=== PATIENT | male | born 2000 | race Caucasian/White ===

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

== ENCOUNTER 2024-05-10 12:21 | Emergency (ER) | payer OTHER, SELFPAY ==
[2024-05-10 12:34] VITALS: BP 116/67; PULSE 65; RESP 16; TEMP 36.5; O2SAT 100
--- NOTE | 2024-05-10 12:43 | ED.MALEGU ---
HPI - Male Genitourinary General Chief complaint: Urogenital-Male Stated complaint: std test Time Seen by Provider: 05/10/24 12:24 Source: patient Mode of arrival: ambulatory Limitations: no limitations History of Present Illness HPI Narrative: Nkio is a 21-year-old male patient presenting to the clinic today with complaints chlamydia exposure. He reports his ex-girlfriend was seen by her rare/endangered species specialist on Thursday last week in tested positive for chlamydia. She notified him and prompted him to come in to the clinic today for evaluation. He denies any penile discharge, back pain, abdominal pain, fevers, chills, nausea, vomiting, or testicle pain. Related Data Allergies Allergy/AdvReac Type Severity Reaction Status Date / Time No Known Allergies Allergy Verified 05/10/24 12:24 Review of Systems Review of Systems: Pertinent positives per HPI. Patient denies any fever, chills, rash, headache, visual changes, dizziness, cough, runny nose, sore throat, shortness of breath, chest pain, palpitations, nausea, vomiting, diarrhea, constipation, abdominal pain, or any urinary issues. PMFSH Past Medical History Medical History Collar bone fracture X2 Seizure none in years Surgical History Surgical History (Updated 03/17/20 @ 12:14 by LLUVIA Valdez) No significant past surgical history Family History Family History Father Rheumatoid arthritis Mother Alive and well Social History Social History Smoking status: Never smoker Tobacco type: cigarettes Second hand tobacco smoke exposure: No Alcohol intake: never Substance use: never Living arrangements: with family Occupation/Education: occupation Gender identity (if verbalized by the patient): Male Comments At the time of my signature, I reviewed and agree with the nursing past medical, surgical, social, and family history. There is no relevant family history pertinent to the patient complaint. Exam Narrative: General: Well-developed, well nourished, in no apparent distress. Head: Normocephalic, atraumatic. Cardio: Regular rate and rhythm, s1 and s2 normal, no murmur appreciated. Resp: Clear to auscultation bilaterally, no rhonchi, rales, wheezing or rubs. Abdomen: Soft, pliable, bowel sounds present in all quadrants, non-tender to palpation, no organomegly, no CVAT tenderness. : Deferred Course Course Emergency Course: Portions of this record may have been created with voice recognition software. Level of Care: Express Care Visit Vital Signs Vital signs: Vital Signs Temperature 36.5 C 05/10/24 12:34 Pulse Rate 65 05/10/24 12:34 Respiratory Rate 16 05/10/24 12:34 Blood Pressure 116/67 05/10/24 12:34 Pulse Oximetry 100 05/10/24 12:34 Oxygen Delivery Room Air 05/10/24 12:34 Temperature 36.5 C 05/10/24 12:34 Pulse Rate 65 05/10/24 12:34 Respiratory Rate 16 05/10/24 12:34 Blood Pressure 116/67 05/10/24 12:34 Pulse Oximetry 100 05/10/24 12:34 Oxygen Delivery Room Air 05/10/24 12:34 Vital signs reviewed MDM - Male Genitourinary MDM Narrative Medical decision making narrative: At the time of visit patient is resting comfortably on the exam table. Patient appears to be nontoxic. Labs: Urine obtained for testing for chlamydia, gonorrhea and Trichomonas. Plan: Patient had positive exposure to chlamydia. Will place patient on doxycycline and also give him Rocephin injection in the clinic today to cover gonorrhea. Supportive measures were discussed with the patient and they voiced understanding discharge instructions and agrees to treatment plan. Return precautions reviewed Differential Diagnosis Differential diagnosis: Likely urinary tract infection, urethritis, epididymitis, genital herpes simplex and other Discharge Plan Discharge Clinical Impression: Exposure to chlamydia Patient Disposition: Home, Self-Care Condition: Stable Instructions: Antibiotic Form, Chlamydia (ED), Sexually Transmitted Diseases (ED), Safe Sex Practices (ED) Additional Instructions: Take doxycycline as prescribed We have tested/treated you for STIs in the clinic today. Avoid any sexual activity- includes oral, anal, or vaginal intercourse until you get results back and have completed any additional recommended treatment regimens. We will contact you if testing is positive and make sure your treatment was appropriate for the type of STI. If symptoms worsen after treatment recommend reevaluation with your PCP or Express care. Prescriptions: New doxycycline monohydrate 100 mg capsule 100 mg PO BID 7 Days Qty: 14 0RF Follow-up/Referrals: Samira Velasquez APRN [Primary Care Provider] - Time of Disposition: 12:46 Quality NIHSS Nursing Documentation ED NIHSS nursing documentation: reviewed/agree
[2024-05-10] MEDS: cefTRIAXone 500 MG, LIDOCAINE HCL 1% LOCAL INJ 1 ML IM (12:49)
[2024-05-10 21:31] LABS: Trichomonas Vag PCR NOT DETECTED (NOT DETECTE)
[2024-05-10 21:57] LABS: Chlamydia trachomatis DETECTED (NOT DETECTE); Neisseria gonorrhoeae PCR NOT DETECTED (NOT DETECTE)
== END 2024-05-10 13:00 | disposition home or self-care (01) ==
PROVIDERS: Emergency Provider Nurse Practitioner Family; PCP Nurse Practitioner Family
DX: Z20.2 Contact with and (suspected) exposure to infections with a predominantly sexual mode of transmission (principal); Z11.3 Encounter for screening for infections with a predominantly sexual mode of transmission
CPT/HCPCS: 87491; 87591; 87661; 96372; 99213; G0463; J0696; J2003

== ENCOUNTER 2024-06-14 14:52 | Emergency (ER) | payer OTHER, SELFPAY ==
[2024-06-14 15:23] VITALS: BP 107/80; PULSE 60; RESP 18; TEMP 36.5; O2SAT 99
--- NOTE | 2024-06-14 15:35 | ED_ITS ---
HPI - URI/Sore Throat General Chief Complaint: Upper Respiratory Infection Stated Complaint: head pressure/cough/congestion Time Seen by Provider: 06/14/24 15:35 Source: patient Mode of arrival: ambulatory Limitations: no limitations History of Present Illness HPI Narrative: 23-year-old male presents with complaint of sinus congestion, pressure to bilateral ears with muffled hearing, worsening of pressure with position changes. Taking an [id number] DayQuil cold and Sinus with no relief so if symptoms. Afebrile. Concern for bacterial sinusitis. All systems reviewed and negative except as noted above. Related Data Allergies Allergy/AdvReac Type Severity Reaction Status Date / Time No Known Allergies Allergy Verified 06/14/24 15:22 Review of Systems Review of Systems: CONSTITUTIONAL: Denies fever, chills, or sweats. EYES: Denies visual changes, redness, or discharge. ENT: Reports rhinorrhea, congestion, sinus pressure, bilateral ear pressure. Denies sore throat CARDIOVASCULAR: Denies chest pain, palpitations, or edema. RESPIRATORY: Denies cough or dyspnea. GASTROINTESTINAL: Denies abdominal pain, nausea, vomiting, or diarrhea. GENITOURINARY: Denies dysuria or hematuria. SKIN: Denies rash or itching. MUSCULOSKELETAL: Denies back pain, joint pain, or myalgia. NEUROLOGIC: Denies headache, numbness, or weakness. PSYCHIATRIC: Denies anxiety or depression. All other systems reviewed are negative, except as documented in HPI. [facility] Past Medical History Medical History Collar bone fracture X2 Seizure none in years Surgical History Surgical History (Updated 03/17/20 @ 12:14 by LLUVIA Valdez) No significant past surgical history Family History Family History Father Rheumatoid arthritis Mother Alive and well Social History Social History Smoking status: Never smoker Tobacco type: cigarettes Second hand tobacco smoke exposure: No Alcohol intake: never Substance use: never Living arrangements: with family Occupation/Education: occupation Gender identity (if verbalized by the patient): Male Comments At time of signature, agree with nursing past medical, surgical, social and family history. There is no relevant family history pertinent to the presenting complaint. Exam Narrative: GENERAL: This is a well-nourished, well-developed patient, in no apparent distress. HEAD: normocephalic, atraumatic. EYES: PERRL. Sclera clear/white. Vision is grossly intact. EARS: External ears normal, auditory canals clear and without drainage, fluid bilateral TMs with mild erythema without perforation bilaterally. Hearing grossly intact. NOSE: External nose normal with Mild congestion, purulent nasal drainage THROAT: Mucous membranes moist, erythema with clear postnasal drainage. Frontal sinus tenderness on palpation NECK: Neck supple, non-tender without lymphadenopathy, masses or thyromegaly. CARDIOVASCULAR: Regular rate and rhythm without murmurs, gallops, or rubs. RESPIRATORY: Clear to auscultation. Breath sounds equal bilaterally. No wheezes, rales, or rhonchi. SKIN: warm, Dry, intact with no suspicious lesions or rash, good texture and turgor. NEURO: awake, alert, and oriented to person, place and time. There were no obvious focal neurologic abnormalities. EXTREMITIES: No joint tenderness, effusion, or edema noted. Course Course Level of Care: Express Care Visit Vital Signs Vital signs: Vital Signs Temperature 36.5 C 06/14/24 15:23 Pulse Rate 60 06/14/24 15:23 Respiratory Rate 18 06/14/24 15:23 Blood Pressure 107/80 06/14/24 15:23 Pulse Oximetry 99 06/14/24 15:23 Temperature 36.5 C 06/14/24 15:23 Pulse Rate 60 06/14/24 15:23 Respiratory Rate 18 06/14/24 15:23 Blood Pressure 107/80 06/14/24 15:23 Pulse Oximetry 99 06/14/24 15:23 reviewed MDM - URI/Sore Throat MDM Narrative Medical decision making narrative: will treat patient for bacterial sinusitis due to duration of symptoms and exam findings. Patient is aware of diagnosis, understands and agrees to treatment plan. Anticipatory guidance given. Patient agrees to follow-up as directed and is aware of reasons to seek care at the emergency department. Portions of this record may have been created with voice recognition software Differential Diagnosis Differential diagnosis: Likely upper respiratory infection, sinusitis and viral infection Discharge Plan Discharge Clinical Impression: Acute bacterial sinusitis Patient Disposition: Home, Self-Care Condition: Stable Instructions: Antibiotic Form, Sinusitis (ED) Additional Instructions: take medications as prescribed. Take Tylenol or ibuprofen every 6-8 hours as needed for pain and fever. Drink at least 64 oz of water a day. Place cool mist humidifier in bedroom where you sleep. Follow-up with your primary care physician if symptoms are not improving. Patient Language: Luxembourgish Prescriptions: New amoxicillin 875 mg tablet 875 mg PO Q12H 7 Days Qty: 14 0RF fluticasone propionate [Flonase Allergy Relief] 50 mcg/actuation spray,suspension 1 spray intranasal BID Qty: 16 0RF Rx Instructions: administer into each nostril Claritin-D 24 Hour 10-240 mg tablet extended release 24 hr 1 tablet PO DAILY PRN (Reason: sinus symptoms) Qty: 10 0RF Follow-up/Referrals: Samira Velasquez APRN [Primary Care Provider] - Time of Disposition: 15:41
== END 2024-06-14 15:44 | disposition home or self-care (01) ==
PROVIDERS: Emergency Provider Nurse Practitioner Family; PCP Nurse Practitioner Family
DX: J01.80 Other acute sinusitis (principal); B96.89 Other specified bacterial agents as the cause of diseases classified elsewhere
CPT/HCPCS: 99213; G0463